=== PATIENT | female | born 1930 | race Caucasian/White ===

== ENCOUNTER → 2016-05-03 | Outpatient (CLI) | payer MEDICARE, BC ==
[~2016-05-03] MED LIST: ACET-66 PO; ALEN70TA48 PO; AMOX500C2 PO; ASPI-1093 PO; ATEN25 PO; CALC1TAB PO; DSS100 PO; FLAX1000 PO; FLUT16H NASAL; GLUC100019 PO; MELA1TAB8 PO; OMEP20 PO; OMEP20CA10 PO; PROM12.510 PO; SIME125C PO
[2016-05-03 10:22] LABS: BASOPHILS % (AUTO) 0.6 % (0.0-2.0); EOSINOPHILS % (AUTO) 0.8 % (1.0-6.0); HEMATOCRIT 38.8 % (36-46); HEMOGLOBIN 12.6 g/dL (12.0-16.0); LYMPHOCYTES # (AUTO) 4.3 K/uL (1.0-4.8); LYMPHOCYTES % (AUTO) 27.8 % (22.0-44.0); MEAN CORPUSCULAR HEMOGLOBIN 27.1 pg (26.0-34.0); MEAN CORPUSCULAR HGB CONC 32.6 G/dL (31.0-37.0); MEAN CORPUSCULAR VOLUME 83 fL (80-100); MONOCYTES # (AUTO) 2.9 K/uL (0.1-1.0); MONOCYTES % (AUTO) 18.8 % (2.0-9.0); PLATELET COUNT (AUTO) 289 K/uL (150-450); RED BLOOD CELL COUNT(AUTO) 4.66 MIL/uL (4.00-5.20); RED CELL DISTRIBUTION WIDTH 15.1 % (11.5-14.5); WHITE BLOOD COUNT (AUTO) 15.4 K/uL (4.5-11.0)
[2016-05-03 11:14] LABS: ALANINE AMINOTRANSFERASE 24 U/L (12-78); ALBUMIN 3.6 g/dL (3.4-5.0); ANION GAP 10 mmol/L (8-16); ASPARTATE AMINOTRANSFERASE 25 U/L (15-37); BILIRUBIN,TOTAL 0.3 mg/dL (0.1-1.0); CALCIUM, TOTAL 9.4 mg/dL (8.8-10.5); CARBON DIOXIDE 26 mmol/L (22-29); CHLORIDE 103 mmol/L (98-107); CHOL/HDL RATIO 3.6 (3.9-5.7); CREATININE 0.83 mg/dL (0.60-1.30); GLOMERULAR FILTR. RATE CALC > 60 mL/min (>60); POTASSIUM 4.1 mmol/L (3.5-5.1); SODIUM SERUM 139 mmol/L (136-145); THYROID STIMULATING HORMONE 3.41 uIU/mL (0.36-3.74); TOTAL PROTEIN, SERUM 7.5 g/dL (6.4-8.2); UREA NITROGEN, BLOOD 9 mg/dL (7-18)
== END | disposition home or self-care (01) ==
LOC: LABPV 07:15
PROVIDERS: ATTEND Family Medicine
DX: I10 Essential (primary) hypertension (principal); D64.9 Anemia, unspecified; E07.9 Disorder of thyroid, unspecified
CPT/HCPCS: 84439; 84443; 84480

== ENCOUNTER → 2016-05-16 | Outpatient (CLI) | payer MEDICARE, BC ==
[2016-05-16 11:56] LABS: BASOPHILS % (AUTO) 0.6 % (0.0-2.0); EOSINOPHILS % (AUTO) 0.6 % (1.0-6.0); HEMATOCRIT 36.8 % (36-46); HEMOGLOBIN 11.9 g/dL (12.0-16.0); LYMPHOCYTES # (AUTO) 3.1 K/uL (1.0-4.8); LYMPHOCYTES % (AUTO) 22.2 % (22.0-44.0); MEAN CORPUSCULAR HEMOGLOBIN 26.8 pg (26.0-34.0); MEAN CORPUSCULAR HGB CONC 32.2 G/dL (31.0-37.0); MEAN CORPUSCULAR VOLUME 83 fL (80-100); MONOCYTES # (AUTO) 3.7 K/uL (0.1-1.0); MONOCYTES % (AUTO) 26.1 % (2.0-9.0); NEUTROPHILS # (AUTO) 7.1 K/uL (1.8-7.7); NEUTROPHILS % (AUTO) 50.5 % (40.0-70.0); PLATELET COUNT (AUTO) 197 K/uL (150-450); RED BLOOD CELL COUNT(AUTO) 4.43 MIL/uL (4.00-5.20); RED CELL DISTRIBUTION WIDTH 15.1 % (11.5-14.5); WHITE BLOOD COUNT (AUTO) 14.1 K/uL (4.5-11.0)
== END | disposition home or self-care (01) ==
LOC: LABPV 10:10
PROVIDERS: ATTEND Family Medicine
DX: D72.829 Elevated white blood cell count, unspecified (principal)

== ENCOUNTER 2016-06-16 11:57 | Emergency (ER) | payer MEDICARE, BC ==
[~2016-06-16] VITALS: Ht 160 cm; Wt 67.3 kg
[~2016-06-16 11:57] MED LIST changes: -AMOX500C2 PO; -MELA1TAB8 PO; -OMEP20CA10 PO; -PROM12.510 PO; -SIME125C PO
[2016-06-16] MEDS ORDERED: OMEP20CA10 PO (12:11)
[2016-06-16] MEDS ORDERED: PROM12.510 PO (12:11)
[2016-06-16] MEDS ORDERED: AMOX500C2 PO (12:11)
[2016-06-16 12:57] LABS: CALCIUM, TOTAL 8.8 mg/dL (8.8-10.5); CREATININE 0.99 mg/dL (0.60-1.30); POTASSIUM 3.9 mmol/L (3.5-5.1)
[2016-06-16 12:59] LABS: HEMATOCRIT 38.3 % (36-46); HEMOGLOBIN 12.8 g/dL (12.0-16.0); MEAN CORPUSCULAR HGB CONC 33.5 G/dL (31.0-37.0); MEAN CORPUSCULAR VOLUME 81 fL (80-100); PLATELET COUNT (AUTO) 178 K/uL (150-450); RED BLOOD CELL COUNT(AUTO) 4.75 MIL/uL (4.00-5.20); RED CELL DISTRIBUTION WIDTH 16.1 % (11.5-14.5); WHITE BLOOD COUNT (AUTO) 12.9 K/uL (4.5-11.0)
[2016-06-16 13:03] LABS: BILIRUBIN,TOTAL 0.5 mg/dL (0.1-1.0); TOTAL PROTEIN, SERUM 7.7 g/dL (6.4-8.2)
[2016-06-16 13:40] LABS: BAND NEUTROPHILS % (MANUAL) 12 % (1-5); LYMPHOCYTES % (MANUAL) 16 % (22-44); TOTAL CELLS COUNTED 100
[2016-06-16] MEDS ORDERED: ONDANSETRON HCL 4 MG/2 ML VIAL IVP ONE (14:45)
[2016-06-16] MEDS ORDERED: ACETAMINOPHEN 500 MG TABLET PO ONE (14:45)
[2016-06-16] MEDS ORDERED: SODIUM CHLORIDE 0.9% 500 ML IV ONE (14:45)
[2016-06-16 16:21] LABS: APPEARANCE,URINE CLEAR (CLEAR); GLUCOSE, URINE (UA) NEGATIVE (NEGATIVE); KETONES,URINE 40 mg/dL (NEGATIVE); LEUKOCYTE ESTERASE ,URINE NEGATIVE (NEGATIVE); OCCULT BLOOD,URINE LARGE (NEGATIVE); PH,URINE 6.5 (5.0-8.0); PROTEIN,URINE NEGATIVE (NEGATIVE)
[2016-06-16 16:24] LABS: ADD UA MICROSCOPIC YES
[2016-06-16 16:26] LABS: RBC,URINE 26-50 /HPF (0-2); SQUAMOUS EPITHELIAL CELL,UR Few /LPF (None Seen); WBC,URINE 0-2 /HPF (0-5)
[2016-06-16] MEDS ORDERED: MELA1TAB8 PO (17:09)
[2016-06-16] MEDS ORDERED: SIME125C PO (17:09)
[2016-06-16] MEDS ORDERED: MetroNIDAZOLE 250 MG TABLET PO ONE (17:45)
[2016-06-16] MEDS ORDERED: NITROFURANTOIN/NITROFURAN MAC 100 MG CAPSULE [MACROBID] PO ONE (17:45)
[2016-06-16 18:08] VITALS: BP 126/58
== END 2016-06-16 18:18 | disposition home or self-care (01) ==
LOC: EMS 11:58
DX: N39.0 Urinary tract infection, site not specified (principal); I10 Essential (primary) hypertension; K21.9 Gastro-esophageal reflux disease without esophagitis; M19.90 Unspecified osteoarthritis, unspecified site; Z79.82 Long term (current) use of aspirin; Z88.1 Allergy status to other antibiotic agents; Z88.2 Allergy status to sulfonamides
CPT/HCPCS: 36415; 51701; 74176; 80053; 81001; 85025; 96361; 96374; 99285; J2405; J7040

== ENCOUNTER → 2016-07-11 | Outpatient (CLI) | payer MEDICARE, BC ==
[~2016-07-11] MED LIST changes: +AMOX500C2 PO; +MELA1TAB8 PO; -OMEP20 PO; +OMEP20CA10 PO; +PROM12.510 PO; +SIME125C PO
[2016-07-11 13:36] LABS: APPEARANCE,URINE CLEAR (CLEAR); GLUCOSE, URINE (UA) NEGATIVE (NEGATIVE); KETONES,URINE NEGATIVE (NEGATIVE); LEUKOCYTE ESTERASE ,URINE NEGATIVE (NEGATIVE); OCCULT BLOOD,URINE NEGATIVE (NEGATIVE); PH,URINE 6.5 (5.0-8.0); PROTEIN,URINE NEGATIVE (NEGATIVE)
[2016-07-11 13:37] LABS: ADD UA MICROSCOPIC NO
== END | disposition home or self-care (01) ==
LOC: LABPV 09:15
PROVIDERS: ATTEND Hospitalist
DX: R31.29 Other microscopic hematuria (principal)
CPT/HCPCS: 82570; 84156

== ENCOUNTER → 2016-07-18 | Outpatient (CLI) | payer MEDICARE, BC | END | disposition home or self-care (01) | LOC: RADPV 15:37 | PROVIDERS: ATTEND Family Medicine | DX: M16.11 Unilateral primary osteoarthritis, right hip (principal) | CPT/HCPCS: 73502 ==

== ENCOUNTER 2016-07-21 09:02 | Emergency (ER) | payer MEDICARE, BC ==
[~2016-07-21] VITALS: Ht 160 cm; Wt 65.9 kg
[2016-07-21] MEDS ORDERED: HYDROCODONE/ACETAMINOPHEN 5-325 MG TABLET PO ONE (11:00)
[2016-07-21 13:06] VITALS: BP 127/65
== END 2016-07-21 13:08 | disposition home or self-care (01) ==
LOC: EMS 09:03
DX: M25.551 Pain in right hip (principal); I10 Essential (primary) hypertension; K21.9 Gastro-esophageal reflux disease without esophagitis; Z79.82 Long term (current) use of aspirin; Z88.8 Allergy status to other drugs, medicaments and biological substances; Z88.2 Allergy status to sulfonamides; Z88.1 Allergy status to other antibiotic agents
CPT/HCPCS: 73502; 99284

== ENCOUNTER 2016-07-22 10:08 | Emergency (ER) | payer MEDICARE, BC ==
[~2016-07-22] VITALS: Ht 160 cm; Wt 63.0 kg
[2016-07-22 12:31] LABS: ADD UA MICROSCOPIC YES; APPEARANCE,URINE CLEAR (CLEAR); GLUCOSE, URINE (UA) NEGATIVE (NEGATIVE); KETONES,URINE NEGATIVE (NEGATIVE); LEUKOCYTE ESTERASE ,URINE NEGATIVE (NEGATIVE); OCCULT BLOOD,URINE SMALL (NEGATIVE); PH,URINE 6.5 (5.0-8.0); PROTEIN,URINE NEGATIVE (NEGATIVE)
[2016-07-22 12:40] LABS: RBC,URINE 0-2 /HPF (0-2); SQUAMOUS EPITHELIAL CELL,UR Few /LPF (None Seen); WBC,URINE None Seen /HPF (0-5)
[2016-07-22 13:03] VITALS: BP 139/68
[2016-07-22] MEDS ORDERED: CefTRIAXone SODIUM 1 GM/VIAL IM ONE (13:45)
[2016-07-22] MEDS ORDERED: LIDOCAINE HCL/PF 1% 2 ML VIAL IM ONE (13:45)
== END 2016-07-22 14:24 | disposition home or self-care (01) ==
LOC: EMS 10:10
DX: N39.0 Urinary tract infection, site not specified (principal); I10 Essential (primary) hypertension; K21.9 Gastro-esophageal reflux disease without esophagitis; Z88.1 Allergy status to other antibiotic agents; Z88.8 Allergy status to other drugs, medicaments and biological substances; Z88.2 Allergy status to sulfonamides; Z79.82 Long term (current) use of aspirin
CPT/HCPCS: 81001; 87086; 96372; 99284; J0696; J3490

== ENCOUNTER → 2016-08-06 | Outpatient (CLI) | payer MEDICARE, BC ==
[~2016-08-06] MED LIST changes: -AMOX500C2 PO
[2016-08-06 09:59] LABS: APPEARANCE,URINE CLEAR (CLEAR); GLUCOSE, URINE (UA) NEGATIVE (NEGATIVE); KETONES,URINE NEGATIVE (NEGATIVE); LEUKOCYTE ESTERASE ,URINE NEGATIVE (NEGATIVE); OCCULT BLOOD,URINE TRACE (NEGATIVE); PROTEIN,URINE NEGATIVE (NEGATIVE)
[2016-08-06 10:00] LABS: BASOPHILS % (AUTO) 0.7 % (0.0-2.0); EOSINOPHILS % (AUTO) 0.5 % (1.0-6.0); HEMATOCRIT 36.3 % (36-46); HEMOGLOBIN 11.8 g/dL (12.0-16.0); LYMPHOCYTES # (AUTO) 2.8 K/uL (1.0-4.8); MEAN CORPUSCULAR HEMOGLOBIN 26.6 pg (26.0-34.0); MEAN CORPUSCULAR HGB CONC 32.3 G/dL (31.0-37.0); MEAN CORPUSCULAR VOLUME 82 fL (80-100); MONOCYTES % (AUTO) 18.8 % (2.0-9.0); NEUTROPHILS # (AUTO) 5.8 K/uL (1.8-7.7); PLATELET COUNT (AUTO) 306 K/uL (150-450); RED BLOOD CELL COUNT(AUTO) 4.41 MIL/uL (4.00-5.20); RED CELL DISTRIBUTION WIDTH 16.1 % (11.5-14.5); WHITE BLOOD COUNT (AUTO) 10.7 K/uL (4.5-11.0)
[2016-08-06 10:06] LABS: ADD UA MICROSCOPIC YES
[2016-08-06 10:11] LABS: ALBUMIN 3.4 g/dL (3.4-5.0); ANION GAP 10 mmol/L (8-16); CALCIUM, TOTAL 9.2 mg/dL (8.8-10.5); CARBON DIOXIDE 25 mmol/L (22-29); CHLORIDE 101 mmol/L (98-107); CREATININE 0.86 mg/dL (0.60-1.30); GLOMERULAR FILTR. RATE CALC > 60 mL/min (>60); POTASSIUM 3.8 mmol/L (3.5-5.1); SODIUM SERUM 136 mmol/L (136-145); UREA NITROGEN, BLOOD 5 mg/dL (7-18)
[2016-08-06 10:23] LABS: SQUAMOUS EPITHELIAL CELL,UR Few /LPF (None Seen); WBC,URINE 0-2 /HPF (0-5)
[2016-08-08 07:15] LABS: COMPLEMENT C3 107 mg/dL (82-167); COMPLEMENT C4 33 mg/dL (14-44)
== END | disposition home or self-care (01) ==
LOC: LABPV 08:11
PROVIDERS: ATTEND Internal Medicine Endocrinology, Diabetes & Metabolism
DX: R31.29 Other microscopic hematuria (principal)
CPT/HCPCS: 86160

== ENCOUNTER → 2016-10-11 | Outpatient (CLI) | payer MEDICARE, BC ==
[~2016-10-11] VITALS: Ht 157.5 cm; Wt 61.0 kg
[~2016-10-11] MED LIST changes: +FURO20 PO
[2016-10-11 11:48] VITALS: BP 140/58
== END | disposition home or self-care (01) ==
LOC: SRCNTR 11:40
PROVIDERS: ATTEND Hospitalist
DX: I10 Essential (primary) hypertension (principal); I49.9 Cardiac arrhythmia, unspecified; K21.9 Gastro-esophageal reflux disease without esophagitis; M81.0 Age-related osteoporosis without current pathological fracture; K29.70 Gastritis, unspecified, without bleeding; K64.9 Unspecified hemorrhoids; D72.829 Elevated white blood cell count, unspecified
CPT/HCPCS: G0463

== ENCOUNTER → 2017-01-07 | Outpatient (CLI) | payer MEDICARE, BC ==
[~2017-01-07] VITALS: Ht 157.5 cm; Wt 62.5 kg
[~2017-01-07] MED LIST changes: +ASCO500 PO; -ASPI-1093 PO; +ASPI-1182 PO; -ATEN25 PO; +ATEN25TA PO; +METO25 PO
[2017-01-07 09:39] VITALS: BP 141/60
== END | disposition home or self-care (01) ==
LOC: SRCNTR 09:18
PROVIDERS: ATTEND Hospitalist
DX: I10 Essential (primary) hypertension (principal); K21.9 Gastro-esophageal reflux disease without esophagitis; M81.0 Age-related osteoporosis without current pathological fracture; R19.00 Intra-abdominal and pelvic swelling, mass and lump, unspecified site; K22.70 Barrett's esophagus without dysplasia; Z90.710 Acquired absence of both cervix and uterus
CPT/HCPCS: G0463

== ENCOUNTER → 2017-01-10 | Outpatient (CLI) | payer MEDICARE, BC ==
[~2017-01-10] MED LIST changes: -ATEN25TA PO
== END | disposition home or self-care (01) ==
LOC: RADPV 10:32
PROVIDERS: ATTEND Hospitalist
DX: R19.09 Other intra-abdominal and pelvic swelling, mass and lump (principal)
CPT/HCPCS: 76700

== ENCOUNTER → 2017-01-21 | Outpatient (CLI) | payer MEDICARE, BC ==
[~2017-01-21] VITALS: Ht 137.2 cm; Wt 63.0 kg
[2017-01-21 12:18] VITALS: BP 139/55
== END | disposition home or self-care (01) ==
LOC: SRCNTR 11:59
PROVIDERS: ATTEND Hospitalist
DX: R30.9 Painful micturition, unspecified (principal); I10 Essential (primary) hypertension; K21.9 Gastro-esophageal reflux disease without esophagitis; M81.0 Age-related osteoporosis without current pathological fracture; K57.90 Diverticulosis of intestine, part unspecified, without perforation or abscess without bleeding; Z79.899 Other long term (current) drug therapy; Z88.8 Allergy status to other drugs, medicaments and biological substances
CPT/HCPCS: 87077; 87086; 87186; G0463

== ENCOUNTER → 2017-04-02 | Outpatient (CLI) | payer MEDICARE, BC ==
[2017-04-02 13:10] LABS: APPEARANCE,URINE CLEAR (CLEAR); BILIRUBIN,URINE NEGATIVE (NEGATIVE); GLUCOSE, URINE (UA) NEGATIVE (NEGATIVE); KETONES,URINE NEGATIVE (NEGATIVE); LEUKOCYTE ESTERASE ,URINE TRACE (NEGATIVE); NITRATE,URINE NEGATIVE (NEGATIVE); OCCULT BLOOD,URINE NEGATIVE (NEGATIVE); PROTEIN,URINE NEGATIVE (NEGATIVE); UROBILINOGEN,URINE 0.2 mg/dL (<=1.0)
[2017-04-02 13:33] LABS: BACTERIA,URINE None Seen /HPF (None Seen); RBC,URINE None Seen /HPF (0-2); WBC,URINE 0-2 /HPF (0-5)
[2017-04-02 14:39] LABS: ALBUMIN 3.5 g/dL (3.4-5.0); ANION GAP 8 mmol/L (8-16); CALCIUM, TOTAL 9.2 mg/dL (8.8-10.5); CARBON DIOXIDE 29 mmol/L (22-29); CHLORIDE 103 mmol/L (98-107); CREATININE 0.86 mg/dL (0.60-1.30); GLOMERULAR FILTR. RATE CALC > 60 mL/min (>60); GLUCOSE,RANDOM 78 mg/dL (70-110); PHOSPHORUS 3.5 mg/dL (2.5-4.9); POTASSIUM 4.2 mmol/L (3.5-5.1); SODIUM SERUM 140 mmol/L (136-145); UREA NITROGEN, BLOOD 9 mg/dL (7-18)
== END | disposition home or self-care (01) ==
LOC: LABPV 09:35
PROVIDERS: ATTEND Hospitalist
DX: I12.9 Hypertensive chronic kidney disease with stage 1 through stage 4 chronic kidney disease, or unspecified chronic kidney disease (principal); N18.2 Chronic kidney disease, stage 2 (mild); R31.29 Other microscopic hematuria; D72.829 Elevated white blood cell count, unspecified
CPT/HCPCS: 87086

== ENCOUNTER → 2017-05-09 | Outpatient (CLI) | payer MEDICARE, BC ==
[~2017-05-09] VITALS: Ht 157.5 cm; Wt 62.0 kg
[~2017-05-09] MED LIST changes: +GUAIFDM PO; +VITA-328 PO
[2017-05-09 12:06] VITALS: BP 136/73
== END | disposition home or self-care (01) ==
LOC: SRCNTR 11:58
PROVIDERS: ATTEND Hospitalist
DX: E11.65 Type 2 diabetes mellitus with hyperglycemia (principal); E78.5 Hyperlipidemia, unspecified; K21.9 Gastro-esophageal reflux disease without esophagitis; L60.8 Other nail disorders; M79.676 Pain in unspecified toe(s); B35.1 Tinea unguium; M81.0 Age-related osteoporosis without current pathological fracture
CPT/HCPCS: G0463

== ENCOUNTER → 2017-06-10 | Outpatient (CLI) | payer MEDICARE, BC ==
[~2017-06-10] VITALS: Ht 157.5 cm; Wt 65.0 kg
[~2017-06-10] MED LIST changes: -FLAX1000 PO; -OMEP20CA10 PO
[2017-06-10 14:31] VITALS: BP 132/60
== END | disposition home or self-care (01) ==
LOC: SRCNTR 13:55
PROVIDERS: ATTEND Podiatrist Foot & Ankle Surgery
DX: E11.51 Type 2 diabetes mellitus with diabetic peripheral angiopathy without gangrene (principal); L57.0 Actinic keratosis; Z88.2 Allergy status to sulfonamides; Z79.82 Long term (current) use of aspirin
CPT/HCPCS: G0463

== ENCOUNTER → 2017-07-12 | Outpatient (CLI) | payer MEDICARE, BC ==
[2017-07-12 12:57] LABS: APPEARANCE,URINE CLOUDY (CLEAR); BILIRUBIN,URINE NEGATIVE (NEGATIVE); GLUCOSE, URINE (UA) NEGATIVE (NEGATIVE); KETONES,URINE NEGATIVE (NEGATIVE); LEUKOCYTE ESTERASE ,URINE LARGE (NEGATIVE); NITRATE,URINE POSITIVE (NEGATIVE); OCCULT BLOOD,URINE SMALL (NEGATIVE); PROTEIN,URINE NEGATIVE (NEGATIVE); UROBILINOGEN,URINE 0.2 mg/dL (<=1.0)
[2017-07-12 13:22] LABS: BACTERIA,URINE Moderate /HPF (None Seen); RENAL EPITHELIAL CELLS,URINE Few /LPF (None Seen); SQUAMOUS EPITHELIAL CELL,UR Few /LPF (None Seen)
== END | disposition home or self-care (01) ==
LOC: MSR 09:45
PROVIDERS: ATTEND Internal Medicine
DX: J44.9 Chronic obstructive pulmonary disease, unspecified (principal); D72.829 Elevated white blood cell count, unspecified; Z79.899 Other long term (current) drug therapy
CPT/HCPCS: 71046; 87086

== ENCOUNTER → 2017-08-12 | Outpatient (CLI) | payer MEDICARE, BC ==
[~2017-08-12] VITALS: Ht 157.5 cm; Wt 65.0 kg
[2017-08-12 14:00] VITALS: BP 143/71
== END | disposition home or self-care (01) ==
LOC: SRCNTR 13:51
PROVIDERS: ATTEND Podiatrist Foot & Ankle Surgery
DX: E11.51 Type 2 diabetes mellitus with diabetic peripheral angiopathy without gangrene (principal); L57.0 Actinic keratosis; Z79.82 Long term (current) use of aspirin; Z88.2 Allergy status to sulfonamides
CPT/HCPCS: G0463

== ENCOUNTER → 2017-10-07 | Outpatient (CLI) | payer MEDICARE, BC ==
[~2017-10-07] VITALS: Ht 157.5 cm; Wt 67.5 kg
[2017-10-07 14:11] VITALS: BP 139/65
== END | disposition home or self-care (01) ==
LOC: SRCNTR 13:59
PROVIDERS: ATTEND Podiatrist Foot & Ankle Surgery
DX: E11.9 Type 2 diabetes mellitus without complications (principal); Q82.8 Other specified congenital malformations of skin
CPT/HCPCS: G0463

== ENCOUNTER → 2017-12-03 | Outpatient (CLI) | payer MEDICARE, BC ==
[2017-12-03 10:55] LABS: BASOPHILS % (AUTO) 1.6 % (0.0-2.0); EOSINOPHILS % (AUTO) 0.6 % (1.0-6.0); HEMATOCRIT 29.7 % (36-46); HEMOGLOBIN 9.9 g/dL (12.0-16.0); LYMPHOCYTES # (AUTO) 3.3 K/uL (1.0-4.8); LYMPHOCYTES % (AUTO) 22.7 % (22.0-44.0); MEAN CORPUSCULAR HEMOGLOBIN 25.6 pg (26.0-34.0); MEAN CORPUSCULAR HGB CONC 33.2 G/dL (31.0-37.0); MEAN CORPUSCULAR VOLUME 77 fL (80-100); MONOCYTES # (AUTO) 2.9 K/uL (0.1-1.0); MONOCYTES % (AUTO) 20.5 % (2.0-9.0); NEUTROPHILS # (AUTO) 7.8 K/uL (1.8-7.7); NEUTROPHILS % (AUTO) 54.6 % (40.0-70.0); PLATELET COUNT (AUTO) 263 K/uL (150-450); RED BLOOD CELL COUNT(AUTO) 3.85 MIL/uL (4.00-5.20); RED CELL DISTRIBUTION WIDTH 15.1 % (11.5-14.5)
[2017-12-03 11:13] LABS: ALBUMIN 3.1 g/dL (3.4-5.0); CREATININE 0.9 mg/dL (0.60-1.30); PHOSPHORUS 3.3 mg/dL (2.5-4.9); POTASSIUM 3.8 mmol/L (3.5-5.1)
[2017-12-03 11:22] LABS: APPEARANCE,URINE CLEAR (CLEAR); BILIRUBIN,URINE NEGATIVE (NEGATIVE); GLUCOSE, URINE (UA) NEGATIVE (NEGATIVE); KETONES,URINE NEGATIVE (NEGATIVE); LEUKOCYTE ESTERASE ,URINE NEGATIVE (NEGATIVE); NITRATE,URINE NEGATIVE (NEGATIVE); OCCULT BLOOD,URINE NEGATIVE (NEGATIVE); PH,URINE 6.5 (5.0-8.0); PROTEIN,URINE NEGATIVE (NEGATIVE); UROBILINOGEN,URINE 0.2 mg/dL (<=1.0)
[2017-12-03 14:37] LABS: CREATININE,URINE RANDOM 6.4 mg/dL (30.0-125.0)
[2017-12-03 14:45] LABS: PROTEIN,URINE RANDOM < 6 mg/dL (0-11.9)
== END | disposition home or self-care (01) ==
LOC: LABPV 07:14
PROVIDERS: ATTEND Hospitalist
DX: I12.9 Hypertensive chronic kidney disease with stage 1 through stage 4 chronic kidney disease, or unspecified chronic kidney disease (principal); N18.2 Chronic kidney disease, stage 2 (mild); N32.9 Bladder disorder, unspecified; E55.9 Vitamin D deficiency, unspecified; K21.9 Gastro-esophageal reflux disease without esophagitis
CPT/HCPCS: 82306; 82570; 84156

== ENCOUNTER → 2018-03-10 | Outpatient (CLI) | payer MEDICARE, BC ==
[~2018-03-10] VITALS: Ht 160 cm; Wt 71.0 kg
[2018-03-10 14:19] VITALS: BP 136/60
== END | disposition home or self-care (01) ==
LOC: SRCNTR 14:17
PROVIDERS: ATTEND Podiatrist Foot & Ankle Surgery
DX: E11.9 Type 2 diabetes mellitus without complications (principal); I73.9 Peripheral vascular disease, unspecified; Z88.2 Allergy status to sulfonamides
CPT/HCPCS: G0463

== ENCOUNTER → 2018-04-21 | Outpatient (CLI) | payer MEDICARE, BC ==
[~2018-04-21] MED LIST changes: +ACYC200C PO; -ALEN70TA48 PO; +AUD NEB; -FURO20 PO; +HEPA500018 SQ; +HYDR-4061 PO; +IOVERSOL 350 MG/ML 100 ML VIAL ONE; +IPRNEB IH; -MELA1TAB8 PO; +METO-558 PO; -METO25 PO; +MOM30 PO; +PIPE3.379 IV; +SODIUM CHLORIDE 0.9% 100 ML ONE; +ZOLP5 PO
== END | disposition home or self-care (01) ==
LOC: RADMN 08:03
PROVIDERS: ATTEND Hospitalist
DX: J90 Pleural effusion, not elsewhere classified (principal); I70.0 Atherosclerosis of aorta; I51.7 Cardiomegaly; J98.11 Atelectasis; E04.1 Nontoxic single thyroid nodule; J18.9 Pneumonia, unspecified organism; D72.829 Elevated white blood cell count, unspecified
CPT/HCPCS: 71260; J7050; Q9967

== ENCOUNTER 2018-04-22 08:57 | Inpatient (IN) | payer MEDICARE, BC ==
[~2018-04-22] VITALS: Ht 157.5 cm; Wt 66.1 kg
[~2018-04-22 08:57] MED LIST changes: -IOVERSOL 350 MG/ML 100 ML VIAL ONE; -SODIUM CHLORIDE 0.9% 100 ML ONE
[2018-04-22] MEDS ORDERED: 0.9% SODIUM CHLORIDE 10 ML SYRINGE IVP PRN (09:30)
[2018-04-22 09:40] LABS: HEMATOCRIT 28.8 % (36-46); HEMOGLOBIN 9.1 g/dL (12.0-16.0); MEAN CORPUSCULAR HEMOGLOBIN 25.6 pg (26.0-34.0); MEAN CORPUSCULAR HGB CONC 31.6 G/dL (31.0-37.0); MEAN CORPUSCULAR VOLUME 81 fL (80-100); PLATELET COUNT (AUTO) 111 K/uL (150-450); RED BLOOD CELL COUNT(AUTO) 3.56 MIL/uL (4.00-5.20); RED CELL DISTRIBUTION WIDTH 17.3 % (11.5-14.5)
[2018-04-22 09:56] LABS: ALBUMIN 1.9 g/dL (3.4-5.0); BILIRUBIN,TOTAL 0.6 mg/dL (0.1-1.0); CREATININE 1.01 mg/dL (0.60-1.30); TOTAL PROTEIN, SERUM 6.9 g/dL (6.4-8.2)
[2018-04-22 09:58] LABS: POTASSIUM 2.9 mmol/L (3.5-5.1)
[2018-04-22] MEDS ORDERED: FUROSEMIDE 40 MG/4 ML VIAL IVP ONE (10:00)
[2018-04-22 10:03] LABS: INR 1.1 (0.9-1.1); PROTHROMBIN TIME 11.3 SEC (9.4-11.6)
[2018-04-22 10:04] LABS: APPEARANCE,URINE CLEAR (CLEAR); BILIRUBIN,URINE NEGATIVE (NEGATIVE); GLUCOSE, URINE (UA) NEGATIVE (NEGATIVE); KETONES,URINE TRACE mg/dL (NEGATIVE); LEUKOCYTE ESTERASE ,URINE NEGATIVE (NEGATIVE); NITRATE,URINE NEGATIVE (NEGATIVE); OCCULT BLOOD,URINE SMALL (NEGATIVE); PH,URINE 5.5 (5.0-8.0); PROTEIN,URINE POS 1+ (NEGATIVE); UROBILINOGEN,URINE 0.2 mg/dL (<=1.0)
[2018-04-22 10:06] LABS: LACTIC ACID 2.9 mmol/L (0.4-2.0)
[2018-04-22 10:14] LABS: BAND NEUTROPHILS % (MANUAL) 4 % (0-5); LYMPHOCYTES % (MANUAL) 8 % (22-44); METAMYELOCYTES % 5 % (0-0); MONOCYTES % (MANUAL) 25 % (2-9); MYELOCYTES % 1 % (0-0); PLATELET MORPHOLOGY COMMENT LARGE PLTS PRESENT; SEGMENTED NEUTROPHILS % 57 % (40-70)
[2018-04-22 10:16] LABS: BACTERIA,URINE None Seen /HPF (None Seen); SQUAMOUS EPITHELIAL CELL,UR Few /LPF (None Seen); YEAST,URINE Many /HPF (None Seen)
[2018-04-22] MEDS ORDERED: POTASSIUM CHLORIDE 20 MEQ ER TABLET PO ONE (11:00)
[2018-04-22] MEDS ORDERED: ASPIRIN 325 MG TABLET PO ONE (11:00)
[2018-04-22] MEDS ORDERED: METOPROLOL SUCCINATE 25 MG ER TABLET PO ONE (11:15)
[2018-04-22] MEDS ORDERED: CLOPIDOGREL BISULFATE 75 MG TABLET PO ONE (11:15)
[2018-04-22] MEDS: POTASSIUM CHL 10 MEQ/WATER 50 ML IV SCH ×4 (11:19→16:54)
[2018-04-22] MEDS ORDERED: ONDANSETRON HCL 4 MG/2 ML VIAL IVP PRN ×2 (12:45→15:15)
[2018-04-22] MEDS ORDERED: ACETAMINOPHEN 325 MG TABLET PO PRN (12:45)
[2018-04-22] MEDS ORDERED: SODIUM CHLORIDE 0.9% 1,000 ML IV ONE (12:46)
[2018-04-22 14:27] VITALS: BP 107/53
[2018-04-22] MEDS: PIPERACILLIN/TAZO 3.375 GM/D5W 50 ML IV SCH ×2 (15:00→21:50)
[2018-04-22] MEDS ORDERED: VANCOMYCIN HCL 1 GM/D5% WATER 200 ML IV SCH (15:00)
[2018-04-22] MEDS ORDERED: MAGNESIUM OXIDE 400 MG TABLET PO PRN (15:15)
[2018-04-22] MEDS ORDERED: ACETAMINOPHEN 500 MG TABLET PO PRN (15:15)
[2018-04-22] MEDS ORDERED: MAGNESIUM SULFATE 4 GM/WATER 100 ML IV PRN (15:15)
[2018-04-22] MEDS ORDERED: MAGNESIUM SULFATE 2 GM/WATER 50 ML IV PRN (15:15)
[2018-04-22] MEDS ORDERED: SODIUM CHLORIDE 0.9% 500 ML IV ONE (15:28)
[2018-04-22] MEDS ORDERED: VANCOMYCIN HCL 1.25 GM in DEXTROSE 5%-WATER 250 ML IV ONE (16:00)
[2018-04-22] MEDS: HEPARIN SODIUM,PORCINE 5,000 UNITS/ML VIAL SQ SCH (17:05)
[2018-04-22 17:17] VITALS: BP 129/68
[2018-04-22] MEDS: IPRATROPIUM BROMIDE 0.5 MG/2.5 ML NEB SOLUTION NEB PRN (19:11)
[2018-04-22] MEDS: LEVALBUTEROL HCL 0.63 MG/3 ML NEB SOLUTION NEB PRN (19:14)
[2018-04-22 20:31] VITALS: BP 119/69
[2018-04-22] MEDS: DOCUSATE SODIUM 100 MG CAPSULE PO SCH ×2 (21:00→21:15)
[2018-04-22] MEDS: HYDROCODONE/ACETAMINOPHEN 5-325 MG TABLET PO PRN (21:14)
[2018-04-22] MEDS: FUROSEMIDE 40 MG/4 ML VIAL IVP SCH (21:50)
[2018-04-23] VITALS (7 sets, daily range): BP systolic 101–121; BP diastolic 54–88
[2018-04-23] MEDS: HEPARIN SODIUM,PORCINE 5,000 UNITS/ML VIAL SQ SCH ×3 (00:59→17:52)
[2018-04-23] MEDS: PIPERACILLIN/TAZO 3.375 GM/D5W 50 ML IV SCH ×4 (02:17→20:36)
[2018-04-23] MEDS: ACETAMINOPHEN 500 MG TABLET PO PRN ×2 (04:45→20:39)
[2018-04-23 06:19] LABS: HEMATOCRIT 23.2 % (36-46); HEMOGLOBIN 7.8 g/dL (12.0-16.0); MEAN CORPUSCULAR HEMOGLOBIN 26.5 pg (26.0-34.0); MEAN CORPUSCULAR HGB CONC 33.4 G/dL (31.0-37.0); MEAN CORPUSCULAR VOLUME 79 fL (80-100); PLATELET COUNT (AUTO) 102 K/uL (150-450); RED BLOOD CELL COUNT(AUTO) 2.92 MIL/uL (4.00-5.20); RED CELL DISTRIBUTION WIDTH 17.4 % (11.5-14.5)
[2018-04-23 06:46] LABS: ALBUMIN 1.7 g/dL (3.4-5.0); BILIRUBIN,TOTAL 0.4 mg/dL (0.1-1.0); CALCIUM, TOTAL 7.5 mg/dL (8.8-10.5); MAGNESIUM 2.3 mg/dL (1.80-2.40); POTASSIUM 3.8 mmol/L (3.5-5.1)
[2018-04-23] MEDS: PANTOPRAZOLE SODIUM 40 MG/VIAL IVP SCH (08:09)
[2018-04-23] MEDS: DOCUSATE SODIUM 100 MG CAPSULE PO SCH ×2 (08:09→20:36)
[2018-04-23] MEDS: VANCOMYCIN HCL 1.25 GM in DEXTROSE 5%-WATER 250 ML IV SCH (08:09)
[2018-04-23] MEDS: FUROSEMIDE 40 MG/4 ML VIAL IVP SCH ×2 (08:09→20:36)
[2018-04-23] MEDS: IPRATROPIUM BROMIDE 0.5 MG/2.5 ML NEB SOLUTION NEB PRN ×2 (08:46→20:52)
[2018-04-23] MEDS: LEVALBUTEROL HCL 0.63 MG/3 ML NEB SOLUTION NEB PRN ×2 (08:46→20:52)
[2018-04-23 08:47] LABS: BAND NEUTROPHILS % (MANUAL) 3 % (0-5); LYMPHOCYTES % (MANUAL) 9 % (22-44); MONOCYTES % (MANUAL) 18 % (2-9); SEGMENTED NEUTROPHILS % 70 % (40-70)
[2018-04-23 08:49] LABS: PLATELET MORPHOLOGY COMMENT LARGE PLTS PRESENT
[2018-04-23] MEDS: NYSTATIN 500,000 UNITS/5 ML SUSPENSION UDCUP PO PRN ×2 (11:23→18:22)
[2018-04-23] MEDS: CARVEDILOL 3.125 MG TABLET PO SCH (20:37)
[2018-04-24] MEDS: HEPARIN SODIUM,PORCINE 5,000 UNITS/ML VIAL SQ SCH ×3 (00:59→17:14)
[2018-04-24] MEDS: ACETAMINOPHEN 500 MG TABLET PO PRN ×2 (02:26→14:44)
[2018-04-24] MEDS: PIPERACILLIN/TAZO 3.375 GM/D5W 50 ML IV SCH ×4 (02:34→20:04)
[2018-04-24 02:48] VITALS: BP 113/61
[2018-04-24 04:31] LABS: INFLUENZA TYPE A NEGATIVE FOR TYPE A (NEGATIVE); INFLUENZA TYPE B NEGATIVE FOR TYPE B (NEGATIVE)
[2018-04-24 07:21] LABS: HEMATOCRIT 21.4 % (36-46); HEMOGLOBIN 7.1 g/dL (12.0-16.0); MEAN CORPUSCULAR HEMOGLOBIN 26.4 pg (26.0-34.0); MEAN CORPUSCULAR HGB CONC 33.4 G/dL (31.0-37.0); MEAN CORPUSCULAR VOLUME 79 fL (80-100); PLATELET COUNT (AUTO) 87 K/uL (150-450)
[2018-04-24 07:48] LABS: ALBUMIN 1.5 g/dL (3.4-5.0); BILIRUBIN,TOTAL 0.4 mg/dL (0.1-1.0); CALCIUM, TOTAL 7.6 mg/dL (8.8-10.5); CREATININE 0.99 mg/dL (0.60-1.30); MAGNESIUM 2.1 mg/dL (1.80-2.40); TOTAL PROTEIN, SERUM 5.6 g/dL (6.4-8.2)
[2018-04-24 07:52] LABS: POTASSIUM 2.9 mmol/L (3.5-5.1)
[2018-04-24 08:08] VITALS: BP 130/66
[2018-04-24] MEDS: PANTOPRAZOLE SODIUM 40 MG/VIAL IVP SCH (08:21)
[2018-04-24] MEDS: FUROSEMIDE 40 MG/4 ML VIAL IVP SCH ×2 (08:22→17:14)
[2018-04-24] MEDS: DOCUSATE SODIUM 100 MG CAPSULE PO SCH ×2 (08:22→20:04)
[2018-04-24] MEDS: NYSTATIN 500,000 UNITS/5 ML SUSPENSION UDCUP PO PRN ×2 (08:22→20:04)
[2018-04-24] MEDS: CARVEDILOL 3.125 MG TABLET PO SCH ×2 (08:22→20:04)
[2018-04-24] MEDS: POTASSIUM CHL 10 MEQ/WATER 50 ML IV PRN ×4 (08:22→14:44)
[2018-04-24] MEDS ORDERED: SODIUM CHLORIDE 0.9% 500 ML IV ONE ×2 (09:29→14:45)
[2018-04-24] MEDS: VANCOMYCIN HCL 1.25 GM in DEXTROSE 5%-WATER 250 ML IV SCH (09:32)
[2018-04-24 10:00] LABS: BAND NEUTROPHILS % (MANUAL) 2 % (0-5); LYMPHOCYTES % (MANUAL) 12 % (22-44); METAMYELOCYTES % 2 % (0-0); MONOCYTES % (MANUAL) 15 % (2-9); MYELOCYTES % 1 % (0-0); SEGMENTED NEUTROPHILS % 68 % (40-70)
[2018-04-24 10:01] LABS: PLATELET MORPHOLOGY COMMENT LARGE PLTS PRESENT
[2018-04-24] MEDS: LACTOBAC ACID/BULG/BIFID/THERM TABLET PO SCH ×2 (10:24→20:04)
[2018-04-24 12:50] VITALS: BP 128/89
[2018-04-24 15:19] VITALS: BP 138/71
[2018-04-24] MEDS ORDERED: SODIUM CHLORIDE 0.9% 250 ML IV ONE (19:55)
[2018-04-24] MEDS: HYDROCODONE/ACETAMINOPHEN 5-325 MG TABLET PO PRN (20:04)
[2018-04-24 20:20] VITALS: BP 139/66
[2018-04-24] MEDS: LEVALBUTEROL HCL 0.63 MG/3 ML NEB SOLUTION NEB PRN (21:05)
[2018-04-24] MEDS: IPRATROPIUM BROMIDE 0.5 MG/2.5 ML NEB SOLUTION NEB PRN (21:05)
[2018-04-25] VITALS (7 sets, daily range): BP systolic 100–135; BP diastolic 50–63
[2018-04-25] MEDS: FUROSEMIDE 40 MG/4 ML VIAL IVP SCH ×3 (00:02→16:35)
[2018-04-25] MEDS: POTASSIUM CHLORIDE 20 MEQ ER TABLET PO PRN ×3 (00:18→20:48)
[2018-04-25] MEDS: ACETAMINOPHEN 500 MG TABLET PO PRN (02:43)
[2018-04-25] MEDS: PIPERACILLIN/TAZO 3.375 GM/D5W 50 ML IV SCH ×4 (02:43→20:48)
[2018-04-25 06:47] LABS: HEMATOCRIT 23.5 % (36-46); HEMOGLOBIN 7.7 g/dL (12.0-16.0); MEAN CORPUSCULAR HEMOGLOBIN 26.4 pg (26.0-34.0); MEAN CORPUSCULAR HGB CONC 32.9 G/dL (31.0-37.0); MEAN CORPUSCULAR VOLUME 80 fL (80-100); PLATELET COUNT (AUTO) 117 K/uL (150-450); RED BLOOD CELL COUNT(AUTO) 2.93 MIL/uL (4.00-5.20); RED CELL DISTRIBUTION WIDTH 17.4 % (11.5-14.5)
[2018-04-25 07:14] LABS: ALBUMIN 1.6 g/dL (3.4-5.0); BILIRUBIN,TOTAL 0.5 mg/dL (0.1-1.0); CREATININE 1.04 mg/dL (0.60-1.30); POTASSIUM 3.3 mmol/L (3.5-5.1); TOTAL PROTEIN, SERUM 6.2 g/dL (6.4-8.2); VANCOMYCIN,RANDOM 22.5 mcg/mL (25.0-50.0)
[2018-04-25] MEDS: LACTOBAC ACID/BULG/BIFID/THERM TABLET PO SCH ×2 (08:27→20:48)
[2018-04-25] MEDS: DOCUSATE SODIUM 100 MG CAPSULE PO SCH ×2 (08:27→20:48)
[2018-04-25] MEDS: VANCOMYCIN HCL 1.25 GM in DEXTROSE 5%-WATER 250 ML IV SCH (08:27)
[2018-04-25] MEDS: HEPARIN SODIUM,PORCINE 5,000 UNITS/ML VIAL SQ SCH ×3 (08:30→16:35)
[2018-04-25] MEDS: PANTOPRAZOLE SODIUM 40 MG/VIAL IVP SCH (08:30)
[2018-04-25] MEDS: CARVEDILOL 3.125 MG TABLET PO SCH ×2 (08:31→20:48)
[2018-04-25] MEDS: LEVALBUTEROL HCL 0.63 MG/3 ML NEB SOLUTION NEB PRN (08:38)
[2018-04-25] MEDS: IPRATROPIUM BROMIDE 0.5 MG/2.5 ML NEB SOLUTION NEB PRN (08:38)
[2018-04-25 08:45] LABS: BAND NEUTROPHILS % (MANUAL) 1 % (0-5); LYMPHOCYTES % (MANUAL) 13 % (22-44); MONOCYTES % (MANUAL) 17 % (2-9); SEGMENTED NEUTROPHILS % 69 % (40-70)
[2018-04-25] MEDS ORDERED: SODIUM CHLORIDE 0.9% 0 ML IV ONE (20:59)
[2018-04-25] MEDS ORDERED: SODIUM CHLORIDE 0.9% 250 ML IV ONE (23:24)
[2018-04-26] MEDS: HEPARIN SODIUM,PORCINE 5,000 UNITS/ML VIAL SQ SCH ×4 (00:20→16:53)
[2018-04-26] MEDS: ACETAMINOPHEN 500 MG TABLET PO PRN ×3 (00:20→13:25)
[2018-04-26] MEDS: FUROSEMIDE 40 MG/4 ML VIAL IVP SCH ×3 (00:20→15:37)
[2018-04-26] MEDS: PIPERACILLIN/TAZO 3.375 GM/D5W 50 ML IV SCH ×4 (02:10→20:48)
[2018-04-26 04:35] VITALS: BP 112/59
[2018-04-26 06:36] LABS: BASOPHILS % (AUTO) 0.9 % (0.0-2.0); EOSINOPHILS % (AUTO) 0.6 % (1.0-6.0); HEMATOCRIT 22.8 % (36-46); HEMOGLOBIN 7.6 g/dL (12.0-16.0); LYMPHOCYTES # (AUTO) 2.1 K/uL (1.0-4.8); LYMPHOCYTES % (AUTO) 11.7 % (22.0-44.0); MEAN CORPUSCULAR HEMOGLOBIN 26.9 pg (26.0-34.0); MEAN CORPUSCULAR HGB CONC 33.5 G/dL (31.0-37.0); MEAN CORPUSCULAR VOLUME 80 fL (80-100); MONOCYTES # (AUTO) 3.2 K/uL (0.1-1.0); NEUTROPHILS # (AUTO) 12.2 K/uL (1.8-7.7); NEUTROPHILS % (AUTO) 68.8 % (40.0-70.0); PLATELET COUNT (AUTO) 130 K/uL (150-450); RED BLOOD CELL COUNT(AUTO) 2.83 MIL/uL (4.00-5.20); RED CELL DISTRIBUTION WIDTH 17.6 % (11.5-14.5)
[2018-04-26 07:22] LABS: ALBUMIN 1.6 g/dL (3.4-5.0); BILIRUBIN,TOTAL 0.4 mg/dL (0.1-1.0); CALCIUM, TOTAL 8.4 mg/dL (8.8-10.5); CREATININE 1.01 mg/dL (0.60-1.30); POTASSIUM 3.4 mmol/L (3.5-5.1); TOTAL PROTEIN, SERUM 6.1 g/dL (6.4-8.2)
[2018-04-26] MEDS: VANCOMYCIN HCL 1 GM/D5% WATER 200 ML IV SCH (08:12)
[2018-04-26] MEDS: POTASSIUM CHLORIDE 20 MEQ ER TABLET PO PRN (08:13)
[2018-04-26 08:41] VITALS: BP 132/70
[2018-04-26] MEDS: PANTOPRAZOLE SODIUM 40 MG/VIAL IVP SCH (09:20)
[2018-04-26] MEDS: LACTOBAC ACID/BULG/BIFID/THERM TABLET PO SCH ×2 (09:20→20:47)
[2018-04-26] MEDS: CARVEDILOL 3.125 MG TABLET PO SCH ×2 (09:20→20:47)
[2018-04-26] MEDS: DOCUSATE SODIUM 100 MG CAPSULE PO SCH ×2 (09:20→20:10)
[2018-04-26] MEDS: IPRATROPIUM BROMIDE 0.5 MG/2.5 ML NEB SOLUTION NEB PRN (10:36)
[2018-04-26 11:31] VITALS: BP 116/64
[2018-04-26] MEDS ORDERED: NYSTATIN 500,000 UNITS/5 ML SUSPENSION UDCUP PO SCH (15:00)
[2018-04-26 17:15] VITALS: BP 110/59
[2018-04-26 19:04] VITALS: BP 115/58
[2018-04-26] MEDS: HYDROCODONE/ACETAMINOPHEN 5-325 MG TABLET PO PRN (20:47)
[2018-04-26] MEDS: NYSTATIN 500,000 UNITS/5 ML SUSPENSION UDCUP PO SCH (20:47)
[2018-04-26 23:32] VITALS: BP 114/58
[2018-04-27] MEDS: HEPARIN SODIUM,PORCINE 5,000 UNITS/ML VIAL SQ SCH ×4 (00:09→23:57)
[2018-04-27] MEDS: FUROSEMIDE 40 MG/4 ML VIAL IVP SCH ×3 (00:09→20:03)
[2018-04-27] MEDS: PIPERACILLIN/TAZO 3.375 GM/D5W 50 ML IV SCH ×4 (02:47→20:04)
[2018-04-27] MEDS: ACETAMINOPHEN 500 MG TABLET PO PRN ×2 (02:56→20:03)
[2018-04-27 03:24] VITALS: BP 105/48
[2018-04-27 05:46] LABS: BASOPHILS % (AUTO) 0.9 % (0.0-2.0); EOSINOPHILS % (AUTO) 0.3 % (1.0-6.0); HEMOGLOBIN 7.2 g/dL (12.0-16.0); LYMPHOCYTES # (AUTO) 2.2 K/uL (1.0-4.8); MEAN CORPUSCULAR HEMOGLOBIN 26.2 pg (26.0-34.0); MEAN CORPUSCULAR HGB CONC 32.9 G/dL (31.0-37.0); MEAN CORPUSCULAR VOLUME 80 fL (80-100); MONOCYTES # (AUTO) 2.6 K/uL (0.1-1.0); MONOCYTES % (AUTO) 14.5 % (2.0-9.0); NEUTROPHILS % (AUTO) 72.3 % (40.0-70.0); PLATELET COUNT (AUTO) 150 K/uL (150-450); RED BLOOD CELL COUNT(AUTO) 2.75 MIL/uL (4.00-5.20); RED CELL DISTRIBUTION WIDTH 18.4 % (11.5-14.5)
[2018-04-27 06:11] LABS: ALBUMIN 1.6 g/dL (3.4-5.0); BILIRUBIN,TOTAL 0.4 mg/dL (0.1-1.0); CALCIUM, TOTAL 8.7 mg/dL (8.8-10.5); CREATININE 1.08 mg/dL (0.60-1.30); POTASSIUM 3.3 mmol/L (3.5-5.1); TOTAL PROTEIN, SERUM 6.1 g/dL (6.4-8.2)
[2018-04-27 07:10] VITALS: BP 112/51
[2018-04-27] MEDS: VANCOMYCIN HCL 1 GM/D5% WATER 200 ML IV SCH (08:06)
[2018-04-27] MEDS: DOCUSATE SODIUM 100 MG CAPSULE PO SCH ×2 (08:07→20:04)
[2018-04-27] MEDS: PANTOPRAZOLE SODIUM 40 MG/VIAL IVP SCH (08:07)
[2018-04-27] MEDS: NYSTATIN 500,000 UNITS/5 ML SUSPENSION UDCUP PO SCH ×2 (08:07→20:04)
[2018-04-27] MEDS: LACTOBAC ACID/BULG/BIFID/THERM TABLET PO SCH ×2 (08:07→20:02)
[2018-04-27] MEDS: CARVEDILOL 3.125 MG TABLET PO SCH ×2 (08:09→20:12)
[2018-04-27] MEDS ORDERED: SODIUM CHLORIDE 0.9% 250 ML IV ONE (11:36)
[2018-04-27 12:06] VITALS: BP 116/57
[2018-04-27] MEDS: POTASSIUM CHLORIDE 20 MEQ ER TABLET PO PRN (13:36)
[2018-04-27] MEDS: LEVALBUTEROL HCL 0.63 MG/3 ML NEB SOLUTION NEB PRN (14:30)
[2018-04-27] MEDS: IPRATROPIUM BROMIDE 0.5 MG/2.5 ML NEB SOLUTION NEB PRN (14:30)
[2018-04-27 17:09] VITALS: BP 116/58
[2018-04-27 20:13] VITALS: BP 137/55
[2018-04-27 23:23] VITALS: BP 120/57
[2018-04-28] MEDS: PIPERACILLIN/TAZO 3.375 GM/D5W 50 ML IV SCH ×4 (02:39→21:30)
[2018-04-28 03:41] VITALS: BP 115/56
[2018-04-28 06:02] LABS: BASOPHILS % (AUTO) 0.6 % (0.0-2.0); EOSINOPHILS % (AUTO) 0.2 % (1.0-6.0); HEMATOCRIT 23.1 % (36-46); HEMOGLOBIN 7.5 g/dL (12.0-16.0); LYMPHOCYTES # (AUTO) 2.1 K/uL (1.0-4.8); MEAN CORPUSCULAR HEMOGLOBIN 26.2 pg (26.0-34.0); MEAN CORPUSCULAR HGB CONC 32.6 G/dL (31.0-37.0); MEAN CORPUSCULAR VOLUME 80 fL (80-100); MONOCYTES # (AUTO) 3.2 K/uL (0.1-1.0); MONOCYTES % (AUTO) 16.8 % (2.0-9.0); NEUTROPHILS # (AUTO) 13.5 K/uL (1.8-7.7); NEUTROPHILS % (AUTO) 71.4 % (40.0-70.0); PLATELET COUNT (AUTO) 173 K/uL (150-450); RED BLOOD CELL COUNT(AUTO) 2.88 MIL/uL (4.00-5.20)
[2018-04-28 06:38] LABS: CALCIUM, TOTAL 9.2 mg/dL (8.8-10.5); CREATININE 1.14 mg/dL (0.60-1.30); POTASSIUM 3.1 mmol/L (3.5-5.1)
[2018-04-28 07:16] VITALS: BP 121/53
[2018-04-28] MEDS: FUROSEMIDE 40 MG/4 ML VIAL IVP SCH ×2 (08:04→21:29)
[2018-04-28] MEDS: LACTOBAC ACID/BULG/BIFID/THERM TABLET PO SCH ×2 (08:04→20:04)
[2018-04-28] MEDS: PANTOPRAZOLE SODIUM 40 MG/VIAL IVP SCH (08:04)
[2018-04-28] MEDS: CARVEDILOL 3.125 MG TABLET PO SCH ×2 (08:04→20:06)
[2018-04-28] MEDS: DOCUSATE SODIUM 100 MG CAPSULE PO SCH ×2 (08:04→20:04)
[2018-04-28] MEDS: HEPARIN SODIUM,PORCINE 5,000 UNITS/ML VIAL SQ SCH (08:05)
[2018-04-28] MEDS: NYSTATIN 500,000 UNITS/5 ML SUSPENSION UDCUP PO SCH ×2 (08:07→20:03)
[2018-04-28] MEDS: POTASSIUM CHL 10 MEQ/WATER 50 ML IV PRN ×3 (09:47→12:25)
[2018-04-28 11:36] VITALS: BP 113/52
[2018-04-28] MEDS ORDERED: SODIUM CHLORIDE 0.9% 250 ML IV ONE ×2 (13:47→16:44)
[2018-04-28 15:38] VITALS: BP 125/56
[2018-04-28] MEDS: POTASSIUM CHLORIDE 20 MEQ ER TABLET PO PRN (20:05)
[2018-04-28 20:07] VITALS: BP 123/52
[2018-04-28] MEDS: ACETAMINOPHEN 500 MG TABLET PO PRN (20:11)
[2018-04-28] MEDS: ZOLPIDEM TARTRATE 5 MG TABLET PO PRN (20:12)
[2018-04-28 23:48] VITALS: BP 139/60
[2018-04-29] MEDS: ACETAMINOPHEN 500 MG TABLET PO PRN ×3 (01:50→16:07)
[2018-04-29] MEDS: PIPERACILLIN/TAZO 3.375 GM/D5W 50 ML IV SCH ×4 (02:45→20:02)
[2018-04-29 04:38] VITALS: BP 113/49
[2018-04-29 06:58] VITALS: BP 128/57
[2018-04-29] MEDS: POTASSIUM CHLORIDE 20 MEQ ER TABLET PO PRN (07:01)
[2018-04-29] MEDS: DOCUSATE SODIUM 100 MG CAPSULE PO SCH ×2 (09:00→20:01)
[2018-04-29] MEDS: CARVEDILOL 3.125 MG TABLET PO SCH ×2 (09:03→20:01)
[2018-04-29] MEDS: NYSTATIN 500,000 UNITS/5 ML SUSPENSION UDCUP PO SCH ×4 (09:03→20:02)
[2018-04-29] MEDS: LACTOBAC ACID/BULG/BIFID/THERM TABLET PO SCH ×2 (09:03→20:01)
[2018-04-29] MEDS: PANTOPRAZOLE SODIUM 40 MG/VIAL IVP SCH (09:03)
[2018-04-29] MEDS: FUROSEMIDE 40 MG/4 ML VIAL IVP SCH ×2 (09:03→20:02)
[2018-04-29 11:40] VITALS: BP 110/53
[2018-04-29 12:10] LABS: HEMATOCRIT 23.1 % (36-46); HEMOGLOBIN 7.3 g/dL (12.0-16.0); MEAN CORPUSCULAR HGB CONC 31.6 G/dL (31.0-37.0); MEAN CORPUSCULAR VOLUME 82 fL (80-100); PLATELET COUNT (AUTO) 192 K/uL (150-450); RED BLOOD CELL COUNT(AUTO) 2.81 MIL/uL (4.00-5.20); RED CELL DISTRIBUTION WIDTH 19.7 % (11.5-14.5)
[2018-04-29] MEDS ORDERED: POTASSIUM CHLORIDE 10% 40 MEQ/30 ML LIQUID UDCUP PO ONE (12:15)
[2018-04-29 12:56] LABS: BAND NEUTROPHILS % (MANUAL) 0 % (0-5)
[2018-04-29 12:59] LABS: BASOPHILS % (MANUAL) 1 % (0-2); LYMPHOCYTES % (MANUAL) 12 % (22-44); MONOCYTES % (MANUAL) 20 % (2-9); MYELOCYTES % 4 % (0-0); SEGMENTED NEUTROPHILS % 63 % (40-70)
[2018-04-29 16:35] VITALS: BP 119/57
[2018-04-29] MEDS: ZOLPIDEM TARTRATE 5 MG TABLET PO PRN (20:03)
[2018-04-29] MEDS: HYDROCODONE/ACETAMINOPHEN 5-325 MG TABLET PO PRN (21:07)
[2018-04-30] VITALS (17 sets, daily range): BP systolic 102–143; BP diastolic 45–97
[2018-04-30] MEDS: PIPERACILLIN/TAZO 3.375 GM/D5W 50 ML IV SCH ×2 (03:16→10:28)
[2018-04-30 07:08] LABS: HEMATOCRIT 21.1 % (36-46); MEAN CORPUSCULAR HEMOGLOBIN 26.1 pg (26.0-34.0); MEAN CORPUSCULAR HGB CONC 32.4 G/dL (31.0-37.0); MEAN CORPUSCULAR VOLUME 81 fL (80-100); PLATELET COUNT (AUTO) 197 K/uL (150-450); RED BLOOD CELL COUNT(AUTO) 2.61 MIL/uL (4.00-5.20); RED CELL DISTRIBUTION WIDTH 19.3 % (11.5-14.5)
[2018-04-30 07:11] LABS: CALCIUM, TOTAL 9.4 mg/dL (8.8-10.5); CREATININE 1.25 mg/dL (0.60-1.30); POTASSIUM 3.4 mmol/L (3.5-5.1)
[2018-04-30 07:21] LABS: HEMOGLOBIN 6.8 g/dL (12.0-16.0)
[2018-04-30 08:39] LABS: BAND NEUTROPHILS % (MANUAL) 3 % (0-5); LYMPHOCYTES % (MANUAL) 13 % (22-44); MONOCYTES % (MANUAL) 21 % (2-9); MYELOCYTES % 2 % (0-0); SEGMENTED NEUTROPHILS % 61 % (40-70)
[2018-04-30 08:43] LABS: PLATELET MORPHOLOGY COMMENT GIANT PLTS PRESENT
[2018-04-30] MEDS ORDERED: DiphenhydrAMINE HCL 50 MG/ML VIAL IVP ONE (09:00)
[2018-04-30] MEDS: DOCUSATE SODIUM 100 MG CAPSULE PO SCH ×2 (09:00→21:00)
[2018-04-30] MEDS ORDERED: ACETAMINOPHEN 325 MG TABLET PO ONE (09:00)
[2018-04-30] MEDS: NYSTATIN 500,000 UNITS/5 ML SUSPENSION UDCUP PO SCH ×4 (10:25→21:15)
[2018-04-30] MEDS: LACTOBAC ACID/BULG/BIFID/THERM TABLET PO SCH ×2 (10:25→21:15)
[2018-04-30] MEDS: FUROSEMIDE 40 MG/4 ML VIAL IVP SCH (10:25)
[2018-04-30] MEDS: CARVEDILOL 3.125 MG TABLET PO SCH ×2 (10:25→21:15)
[2018-04-30] MEDS: PANTOPRAZOLE SODIUM 40 MG/VIAL IVP SCH (10:26)
[2018-04-30] MEDS ORDERED: SODIUM CHLORIDE 0.9% 250 ML IV ONE (12:20)
[2018-04-30] MEDS: POTASSIUM CHLORIDE 20 MEQ ER TABLET PO PRN (12:33)
[2018-04-30] MEDS ORDERED: FUROSEMIDE 40 MG/4 ML VIAL IVP SCH (16:00)
[2018-04-30] MEDS: HYDROCODONE/ACETAMINOPHEN 5-325 MG TABLET PO PRN (21:15)
[2018-04-30] MEDS: PANTOPRAZOLE SODIUM 40 MG DR TABLET PO SCH (21:15)
[2018-04-30] MEDS: FUROSEMIDE 40 MG TABLET PO SCH (21:15)
[2018-05-01 05:22] VITALS: BP 135/57
[2018-05-01 05:56] LABS: HEMATOCRIT 25.2 % (36-46); HEMOGLOBIN 8.3 g/dL (12.0-16.0); MEAN CORPUSCULAR HEMOGLOBIN 26.7 pg (26.0-34.0); MEAN CORPUSCULAR HGB CONC 33.2 G/dL (31.0-37.0); MEAN CORPUSCULAR VOLUME 81 fL (80-100); PLATELET COUNT (AUTO) 219 K/uL (150-450); RED BLOOD CELL COUNT(AUTO) 3.12 MIL/uL (4.00-5.20); RED CELL DISTRIBUTION WIDTH 18.7 % (11.5-14.5)
[2018-05-01 06:04] LABS: CALCIUM, TOTAL 9.4 mg/dL (8.8-10.5); CREATININE 1.1 mg/dL (0.60-1.30); POTASSIUM 3.1 mmol/L (3.5-5.1)
[2018-05-01 08:14] VITALS: BP 133/67
[2018-05-01] MEDS: NYSTATIN 500,000 UNITS/5 ML SUSPENSION UDCUP PO SCH ×2 (09:00→13:28)
[2018-05-01] MEDS ORDERED: POTASSIUM CHLORIDE 10% 40 MEQ/30 ML LIQUID UDCUP PO ONE (09:00)
[2018-05-01] MEDS: DOCUSATE SODIUM 100 MG CAPSULE PO SCH (09:23)
[2018-05-01] MEDS: FUROSEMIDE 40 MG TABLET PO SCH (09:23)
[2018-05-01] MEDS: CARVEDILOL 3.125 MG TABLET PO SCH (09:23)
[2018-05-01] MEDS: POTASSIUM CHLORIDE 20 MEQ ER TABLET PO PRN (09:23)
[2018-05-01] MEDS: PANTOPRAZOLE SODIUM 40 MG DR TABLET PO SCH (09:23)
[2018-05-01 09:48] LABS: BAND NEUTROPHILS % (MANUAL) 0 % (0-5)
[2018-05-01 09:59] LABS: LYMPHOCYTES % (MANUAL) 13 % (22-44); METAMYELOCYTES % 5 % (0-0); MONOCYTES % (MANUAL) 18 % (2-9); MYELOCYTES % 2 % (0-0); PLATELET MORPHOLOGY COMMENT LARGE PLTS PRESENT; SEGMENTED NEUTROPHILS % 62 % (40-70)
[2018-05-01] MEDS: HYDROCODONE/ACETAMINOPHEN 5-325 MG TABLET PO PRN (12:15)
[2018-05-01 13:04] VITALS: BP 105/58
[2018-05-01] MEDS: LACTOBAC ACID/BULG/BIFID/THERM TABLET PO SCH (13:28)
[2018-05-01] MEDS ORDERED: FURO40 PO (14:07)
[2018-05-01] MEDS ORDERED: CARV3 PO (14:08)
[2018-05-01] MEDS ORDERED: POTA10TA PO (14:08)
== END 2018-05-01 17:25 | disposition hospice, home (50) | DRG 871 ==
LOC: EMS 08:58 → 5S 12:45 → 6N 04-30 22:52
PROVIDERS: ADMIT Hospitalist; ATTEND Hospitalist
PROC: 30233N1 Transfusion of Nonautologous Red Blood Cells into Peripheral Vein, Percutaneous Approach (ICD-10-PCS; principal; 2018-04-30)
DX: A41.9 Sepsis, unspecified organism (principal); J18.9 Pneumonia, unspecified organism; I50.21 Acute systolic (congestive) heart failure; E43 Unspecified severe protein-calorie malnutrition; I21.4 Non-ST elevation (NSTEMI) myocardial infarction; J96.01 Acute respiratory failure with hypoxia; C93.10 Chronic myelomonocytic leukemia not having achieved remission; J44.0 Chronic obstructive pulmonary disease with (acute) lower respiratory infection; J90 Pleural effusion, not elsewhere classified; D63.8 Anemia in other chronic diseases classified elsewhere; I11.0 Hypertensive heart disease with heart failure; I27.20 Pulmonary hypertension, unspecified; K21.9 Gastro-esophageal reflux disease without esophagitis; Y95 Nosocomial condition; Z90.710 Acquired absence of both cervix and uterus; Z79.82 Long term (current) use of aspirin; Z79.899 Other long term (current) drug therapy; Z88.8 Allergy status to other drugs, medicaments and biological substances
CPT/HCPCS: 71260; 83605; 83735; 84132; 84145; 86850; 86900; 86901; 86920; 87040; 87081; 87804; 93005; 93306; 94640; 94660; 96374; 99291; C9113; G0378; J1200; J1644; J1940; J2543; J3370; J3480; J7030; J7040; J7050; J7060; P9016